=== PATIENT | female | born 1955 | race Hispanic/Latino ===

== ENCOUNTER 2019-08-17 15:15 | Emergency (ER) | payer OTHER ==
--- NOTE | 2019-08-17 17:15 | RAD ---
CHEST TWO VIEWS: 08/17/19 While there is no major infiltrate, I suspect there is a little streaking in each lung base. Probably if one were to do a CT (not recommended) one would see more than one might expect given this chest x -ray. There are no effusions or large consolidations. The heart size is normal. The trachea is midlin e. IMPRESSION: Probable minor basilar streaking bilaterally. POS: HOME
== END 2019-08-17 17:20 | disposition home or self-care (01) ==
LOC: BURERS 15:15
DX: U07.1 COVID-19 (principal); E78.5 Hyperlipidemia, unspecified; E78.00 Pure hypercholesterolemia, unspecified; F32.9 Major depressive disorder, single episode, unspecified; Z86.718 Personal history of other venous thrombosis and embolism; Z79.899 Other long term (current) drug therapy
CPT/HCPCS: 71046